=== PATIENT | female | born 1965 | race Hispanic/Latino ===

== ENCOUNTER 2017-07-17 10:19 | Emergency (ER) | payer MEDICAID ==
[2017-07-17] MEDS ORDERED: DiphenhydrAMINE 50 mg/ml Inj IVP STA (10:25)
--- NOTE | 2017-07-17 10:30 | C.PDOC ---
History Of Present Illness 51 Y/O FEMALE BROUGHT TO ED BY EMS FOR EVALUATION OF DIFFICULTY CLOSING MOUTH, TONGUE SPASM X 3 HRS. PATIENT STATES SHE TOOK HALDOL FOR FIRST TIME LAST NIGHT. AWOKE "NORMAL". SIM SX WHEN TOOK ABILITY. LIMITED DUE TO CLINICAL CONDITION. ROS LIMITED EXAM MOD DIST NONTOXIC HEENT NO STRIDOR, DROOL NECK SUPPLE NEURO TARDIVE DYSKINESIA TONGUE, LIMITED SPEECH DUE TO TONGUE SPASM; NO OTHER FOCAL DEF; PSYCH ANXIOUS BUT CONSOLABLE, APPROPRIATE, FOLLOWS COMMANDS WARM DIAPH REMAINDER NEG Time Seen by Provider: 07/17/17 10:25 Chief Complaint (Nursing): Allergic Reaction History Per: Patient History/Exam Limitations: no limitations Onset/Duration Of Symptoms: Hrs Current Symptoms Are (Timing): Still Present Past Medical History Reviewed: Historical Data, Nursing Documentation, Vital Signs Vital Signs: Last Vital Signs Temp 97.6 F 07/17/17 11:50 Pulse 68 07/17/17 11:50 Resp 18 07/17/17 11:50 BP 133/90 07/17/17 11:50 Pulse Ox 98 07/17/17 11:50 - Medical History PMH: Anxiety Surgical History: No Surg Hx - [facility] Procedures LAPAROSCOPIC CHOLECYSTECTOMY (04/23/13) Family History: States: No Known Family Hx - Social History Hx Tobacco Use: Yes Hx Alcohol Use: Yes Hx Substance Use: No - Immunization History Hx Tetanus Toxoid Vaccination: No Hx Influenza Vaccination: No Hx Pneumococcal Vaccination: No Review Of Systems Review Of Systems: ROS cannot be obtained secondary to pt's inabilty to answer questions. Physical Exam - Physical Exam Appears: Non-toxic, Other (Moderate distress. Anxious but consolable) Skin: Warm, Dry, No Rash Head: Atraumatic, Normacephalic Eye(s): bilateral: Normal Inspection Oral Mucosa: Moist, No Drooling Tongue: Other (+spasm) Throat: Normal, No Erythema, No Exudate Neck: Normal ROM, Supple Cardiovascular: Rhythm Regular Respiratory: Normal Breath Sounds, No Rales, No Rhonchi, No Stridor, No Wheezing Neurological/Psych: Oriented x3, No Normal Speech (limited secondary to tongue spasm), Normal Cognition, Normal Cranial Nerves, Other (Tardive Dyskinesia. Follows commands appropriately) ED Course And Treatment O2 Sat by Pulse Oximetry: 100 (RA) Pulse Ox Interpretation: Normal Progress - Re-Evaluation Re-evaluation Note: 07/17/17 11:00 sx resolved. PS FEELS BETTER. VSS. WILL CONT OBS 07/17/17 11:50 EXAM UNCH PRIOR. VSS. AMBUL WO DIFF, CLEAR SPEECH AND THOUGHT STEADY GAIT. +PO TRIAL WO DIFF. PT REQUESTING DC NOW DUE TO CONCERN FOR PARKING TICKET. - Data Reviewed Data Reviewed: Old records Disposition Counseled Patient/Family Regarding: Diagnosis, Need For Followup - Disposition Referrals: YOUR,PSYCHIATRIST [Other] Disposition: HOME/ ROUTINE Disposition Time: 11:51 Condition: IMPROVED Additional Instructions: AVOID HALDOL IMMEDIATELY. FOLLOW UP YOUR PSYCHIATRIST Instructions: Tardive Dyskinesia Forms: [employer] (German) - Clinical Impression Clinical Impression: Tardive dyskinesia, Medication reaction - Scribe Statement The provider has reviewed the documentation as recorded by the Scribvivinae Trimble All medical record entries made by the Scribe were at my direction and personally dictated by me. I have reviewed the chart and agree that the record accurately reflects my personal performance of the history, physical exam, medical decision making, and the department course for this patient. I have also personally directed, reviewed, and agree with the discharge instructions and disposition.
[2017-07-17 10:31] VITALS: BP 133/90; RESP 18
[2017-07-17] MEDS ORDERED: DiphenhydrAMINE 50 mg/ml Inj ONE (10:57)
[2017-07-17 11:55] VITALS: PULSE 68; TEMP 97.6
[2017-07-17 12:02] VITALS: O2SAT 100
== END 2017-07-17 12:11 | disposition home or self-care (01) ==
LOC: C.ER 10:19
DX: G24.01 Drug induced subacute dyskinesia (principal); T43.4X5A Adverse effect of butyrophenone and thiothixene neuroleptics, initial encounter
CPT/HCPCS: 96372; 96374; 99284; J1200; J2060